=== PATIENT | male | born 1965 | race Two or more races ===

== ENCOUNTER 2017-02-20 09:00 | Emergency (ER) | payer OTHER ==
[2017-02-20 09:13] VITALS: RESP 18; TEMP 98
--- NOTE | 2017-02-20 09:19 | EDPHY ---
H & P Stated Complaint: while @ work cut to Lt little finger Time Seen by Provider: 02/20/17 09:09 HPI/ROS: CHIEF COMPLAINT: Finger laceration HISTORY OF PRESENT ILLNESS: Patient is a 51-year-old man who comes to the emergency department complaining of a laceration to his right little finger. It happened at work. He was working with a muffler which cut the palmar and medial aspect of his little finger. It is not circumferential. He continued to have normal range of motion and strength. He states that he has a little tingling on the very tip of his finger. He denies other injuries. REVIEW OF SYSTEMS: Constitutional: denies: chills, fever, recent illness, recent injury EENTM: denies: blurred vision, double vision, nose congestion Respiratory: denies: cough, shortness of breath Cardiac: denies: chest pain, irregular heart rate, lightheadedness, palpitations Gastrointestinal/Abdominal: denies: abdominal pain, diarrhea, nausea, vomiting, blood streaked stools Genitourinary: denies: dysuria, frequency, hematuria, pain Musculoskeletal: denies: joint pain, muscle pain Skin: See HPI Neurological: denies: headache, numbness, paresthesia, tingling, dizziness, weakness Hematologic/Lymphatic: denies: blood clots, easy bleeding, easy bruising Immunologic/allergic: denies: HIV/AIDS, transplant EXAM: GENERAL: Well-appearing, well-nourished and in no acute distress. HEAD: Atraumatic, normocephalic. EYES: Pupils equal round and reactive to light, extraocular movements intact, sclera anicteric, conjunctiva are normal. ENT: TMs normal, nares patent, oropharynx clear without exudates. Moist mucous membranes. NECK: Normal range of motion, supple without lymphadenopathy or JVD. LUNGS: Breath sounds clear to auscultation bilaterally and equal. No wheezes rales or rhonchi. HEART: Regular rate and rhythm without murmurs, rubs or gallops. ABDOMEN: Soft, nontender, normoactive bowel sounds. No guarding, no rebound. No masses appreciated. BACK: No CVA tenderness, no spinal tenderness, step-offs or deformities EXTREMITIES: See below NEUROLOGICAL: Cranial nerves II through XII grossly intact. Normal speech, normal gait. 5/5 strength, normal movement in all extremities, normal sensation PSYCH: Normal mood, normal affect. SKIN: Laceration to palmar and medial aspect of right little finger . No visible tendon nerve or vascular injury. Normal function and strength. Patient complains of very slight paresthesias at the tip of his finger. Source: Patient Exam Limitations: No limitations - Personal History Current Tetanus Diphtheria and Acellular Pertussis (TDAP): Yes - Medical/Surgical History Hx Asthma: No Hx Chronic Respiratory Disease: No Hx Diabetes: No Hx Cardiac Disease: No Hx Renal Disease: No Hx Cirrhosis: No Hx Alcoholism: No Other PMH: denies - Family History Significant Family History: No pertinent family hx - Social History Smoking Status: Never smoked Alcohol Use: Sober Drug Use: None Constitutional: Initial Vital Signs Temperature (C) 36.6 C 02/20/17 09:12 Heart Rate 78 02/20/17 09:12 Respiratory Rate 18 02/20/17 09:12 Blood Pressure 147/66 H 02/20/17 09:12 O2 Sat (%) 97 02/20/17 09:12 O2 Delivery Mode Room Air Allergies/Adverse Reactions: No Known Allergies Allergy (Unverified 02/20/17 09:12) Home Medications: Medication Instructions Recorded NK [No Known Home Meds] 02/20/17 Medical Decision Making Procedures: Procedure: Laceration repair. Verbal consent was obtained from the patient. The 3 cm right little finger laceration was anesthetized with 0.25% bupivacaine digital block. The wound was irrigated copiously according to protocol, draped and explored to its base. It was approximately 1/2 cm deep. There were no deep structures involved. No tendon, nerve, or vascular injury was identified when explored through full range of motion. No foreign body was identified. The wound was repaired with 5.0 Prolene, 10 sutures, interrupted. The wound repair was complicated with flap alignment margin revision. The procedure was performed by myself. A dressing was then placed with sterile gauze and bacitracin. ED Course/Re-evaluation: Patient tolerated the procedure well. We discussed return to work. We discussed suture care. We discussed indications for returning. Differential Diagnosis: Partial list of the Differential diagnosis considered include but were not limited to; laceration, foreign body, tendon injury, vascular injury and although unlikely based on the history and physical exam, I also considered fracture, crush injury. I discussed these differential diagnoses and the plan with the patient as well as the usual and expected course. The patient understands that the diagnosis is provisional and that in medicine we are not always correct and that further workup is often warranted. Usual and customary warnings were given. All of the patient's questions were answered. The patient was instructed to return to the emergency department should the symptoms at all worsen or return, otherwise to followup with the physician as we discussed. Departure - Departure Disposition: Home, Routine, Self-Care Clinical Impression: Laceration Condition: Fair Instructions: Care For Your Stitches (ED), Laceration (ED) Additional Instructions: Return to have your sutures removed in 10 days Referrals: Rita Dobson MD [Medical Doctor] - As per Instructions Stand Alone Forms: Work Limited Duty, Work Comp Follow Up, Work Excuse
[2017-02-20 10:27] VITALS: BP 127/62; PULSE 77; O2SAT 96
== END 2017-02-20 10:26 | disposition home or self-care (01) ==
LOC: CED 09:00
PROC: 0HQFXZZ Repair Right Hand Skin, External Approach (ICD-10-PCS; principal; 2017-02-20)
DX: S61.216A Laceration without foreign body of right little finger without damage to nail, initial encounter (principal); W45.8XXA Other foreign body or object entering through skin, initial encounter; Y92.69 Other specified industrial and construction area as the place of occurrence of the external cause; Y99.0 Civilian activity done for income or pay; Y93.89 Activity, other specified

== ENCOUNTER 2017-03-01 10:55 | Emergency (ER) | payer OTHER ==
[2017-03-01 11:02] VITALS: BP 127/87; PULSE 91; RESP 18; TEMP 99.5; O2SAT 97
--- NOTE | 2017-03-01 11:09 | EDPHY ---
H & P Time Seen by Provider: 03/01/17 11:09 HPI/ROS: 51-year-old male presents for wound check of finger injury. He was seen here on February 20 after finger injury at work while working on a muffler. He was sutured at that time and placed in a splint. He returns today because he has been having pain in his finger and feels like there is some redness and possible pus at the site of the wound. He denies fevers or chills. Review of systems As per HPI General no fever no chills no weakness HEENT no eye pain no eye discharge. No eye redness, no sore throat Respiratory no cough, no shortness of breath Cardiac no chest pain, no peripheral edema GI no abdominal pain, no diarrhea, no constipation, no nausea, no vomiting no flank pain, no hematuria, no dysuria Musculoskeletal no myalgias, no joint pain Heme no easy bruising, no easy bleeding Endo no polyuria, no polydipsia Skin no rashes, no pruritus Neuro no syncope, no dizziness, no headaches Psych is no suicidal ideation, no homicidal ideation Past Medical/Surgical History: non contributory Smoking Status: Never smoked Physical Exam: Alert and oriented in no acute distress nontoxic appearance, afebrile Atraumatic normocephalic Neck no JVD Lungs clear to auscultation, no respiratory distress Heart regular rate and rhythm Extremities no cyanosis clubbing edema Except Right hand-right little finger, wound intact with sutures, two small areas with small amount of purulent dc erythema to wound edges, and mild swelling of wound cap refill intact, good rom, no signs of tensosynovitis Constitutional: Initial Vital Signs Temperature (C) 37.5 C 03/01/17 11:00 Heart Rate 91 03/01/17 11:00 Respiratory Rate 18 03/01/17 11:00 Blood Pressure 127/87 H 03/01/17 11:00 O2 Sat (%) 97 03/01/17 11:00 O2 Delivery Mode Room Air Allergies/Adverse Reactions: No Known Allergies Allergy (Unverified 02/20/17 09:12) Home Medications: Medication Instructions Recorded Cephalexin 500 mg PO QID #28 tablet 03/01/17 Sulfamethox/Tmp 800/160 mg 1 tab PO BID #14 tab 03/01/17 [Bactrim Ds] traMADol [Ultram 50 mg (*)] 50 mg PO Q6 PRN #12 tab 03/01/17 Medical Decision Making ED Course/Re-evaluation: Patient presents for pain and small amount redness and discharge from finger laceration wound Impression Sutures removed Local wound infection Plan Bactrim, Keflex Tramadol Ibuprofen Follow-up with Hand surgery Return if not improving Departure - Departure Disposition: Home, Routine, Self-Care Clinical Impression: Wound infection, posttraumatic Condition: Good Instructions: Wound Infection (ED) Referrals: NONE *PRIMARY CARE P,. [Primary Care Provider] - As per Instructions Garrett Villalobos MD [Medical Doctor] - As per Instructions Prescriptions: Cephalexin 500 mg PO QID #28 tablet Sulfamethox/Tmp 800/160 mg [Bactrim Ds] 1 tab PO BID #14 tab traMADol [Ultram 50 mg (*)] 50 mg PO Q6 PRN #12 tab PRN Reason: Pain, Severe
== END 2017-03-01 11:52 | disposition home or self-care (01) ==
LOC: CED 10:55
DX: T81.4XXA Infection following a procedure, initial encounter (principal); Y82.8 Other medical devices associated with adverse incidents